=== PATIENT | male | born 1955 | race Caucasian/White ===

== ENCOUNTER 2018-11-27 13:20 | Inpatient (IN) | payer MEDICAID ==
--- NOTE | 2018-11-27 13:48 | EDPHY ---
HPI/HX/ROS/PE/MDM - Data Points Imaging: I viewed and interpreted images myself Narrative: CHIEF COMPLAINT: "Sick. Bowel problems. Urine problems. I can't feel my feet." HPI: The patient is a 63 y/o male arriving with his daughter for evaluation of multiple issues including urinary and bowel incontinence, bilateral foot pain, weight loss, and difficulty walking for the last few months. He says, "my feet feel like ice, sometimes like they're on fire." He also describes difficulty walking around at home and says, "my equilibrium is all shot." His daughter went to visit him for the first time in a while today and found him incontinent , off-balance, and with notable weight loss. She is concerned he is not able to care for himself at home. The patient reports his last doctor visit was at least 2 years ago. He denies back pain, vomiting, fever, unilateral weakness or numbness, genital paresthesias. REVIEW OF SYSTEMS: A comprehensive 10 system review of systems is otherwise negative aside from elements mentioned in the history of present illness. PMH: Hearing loss, asthma, cervical fracture, left shoulder surgery, history of alcohol abuse. SOCIAL HISTORY: Daughter at bedside. Daily smoker. Prior medical records reviewed including admission 07/30/15 for facial abscess. PHYSICAL EXAM: General:Patient is alert, elderly, frail, cyndie skin, in no acute distress. ENT:Eyes are normal to inspection. ENT inspection normal. Neck: Normal inspection. Full range of motion. Respiratory:No respiratory distress. Breath sounds normal bilaterally. Cardiovascular: Regular rate and rhythm. Strong peripheral pulses. Normal cap refill. Abdomen:The abdomen is nontender to palpation. There are no peritoneal signs. Back: Normal to inspection. No tenderness to palpation. Skin: Normal color. No rash. Warm and dry. Extremities: Normal appearance. Full range of motion. Neuro: Oriented x3. Normal motor function. Normal sensory function. Normal dorsiflexion and plantarflexion. (Cole Poole) ED Course: This is an ill-appearing 63 y/o male who presents with a few-month history of bowel and bladder incontinence, difficulty walking, and general decompensation at home. His daughter visited him today and found him incontinent with notable weight loss and brought him to the ED for evaluation. He has a nonfocal neuro exam. Differential is wide. Plan for IV, labs, UA, EKG, chest x-ray, lumbar x- ray. The 12 lead EKG was interpreted by myself. See hard copy and/or "tracemaster" electronic copy for interpretation. Lipase elevated. Reevaluated patient and discussed findings. Recommended admission for further assessment and stabilization, but he is reluctant. Would like to know if there' s anything wrong to determine if he can go home instead. Agreed to abdominal CT. 1500: Patient care signed out to Dr. Freeman at shift change pending imaging and lab results. Likely admission. (Cole Poole) I took over care of this patient at 3:00 p.m.. This patient is here for inability to care for himself and there is concern about malignancy. We are waiting on the results of CT abdomen and pelvis to screen for this. Dr. Poole has discussed admission with this patient. At this time the patient is refusing admission. CT abdomen and pelvis with IV contrast. No significant spinal canal stenosis. Fat containing adrenal adenoma. Diverticulitis without diverticulosis. This is otherwise an unremarkable study. Results were discussed with staff radiologist Dr. Long Leo. 4:00 p.m., the patient was re-evaluated. His daughter is in the room with him. I discussed the results of his CT scan abdomen and pelvis with both him and his daughter. I discussed admission again. The patient is now in agreement to be admitted. This is a failure to thrive and inability to care for himself situation. This was discussed with the daughter. She is in agreement. Hospitalist chano. Spoke with hospitalist, Dr. Beth, case discussed in detail with her. She accepts this patient for admission. The patient's remaining emergency department course under my care has been uneventful. The patient was admitted in stable condition. (Maribell Freeman) - Data Points Imaging Results: Imaging Impressions Chest X-Ray 11/27/18 13:48 Impression: 1. No active cardiopulmonary disease seen. 2. Hyperexpanded lungs possibly from underlying COPD. 3. Old bilateral healed rib fractures and compression fracture suspected at T3, T6, and T10. If indicated, consider DEXA scan at some point to evaluate underlying bone mineral density. Lumbar Spine X-Ray 11/27/18 13:48 Impression: Findings suggest multiple lumbar and thoracic compression deformities, acuity unknown, without focal lesions. Abdomen CT 11/27/18 14:56 Impression: 1. Diverticulosis without definite diverticulitis. 2. Left adrenal adenoma, which is probably benign. No prior studies are available for comparison. A follow-up study could be obtained or further evaluation could be obtained to document benign etiology. 3. See above report for additional findings. Results called and discussed with Cole Poole MD on November 27, 2018 at 1554 hours. Laboratory Results: Laboratory Results 11/27/18 14:21 11/27/18 14:21 11/27/18 11/27/18 11/27/18 14:21 14:21 14:21 WBC RBC Hgb Hct MCV MCH MCHC RDW Plt Count MPV Neut % (Auto) Lymph % (Auto) [place] % (Auto) Eos % (Auto) Baso % (Auto) Nucleat RBC Rel Count Absolute Neuts (auto) Absolute Lymphs (auto) Absolute Monos (auto) Absolute Eos (auto) Absolute Basos (auto) Absolute Nucleated RBC Immature Gran % Immature Gran # PT 13.4 SEC SEC (12.0-15.0) INR 1.00 (0.83-1.16) APTT 28.4 SEC SEC (23.0-38.0) Sodium 139 mEq/L mEq/L (135-145) Potassium 3.6 mEq/L mEq/L (3.5-5.2) Chloride 107 mEq/L mEq/L (97-110) Carbon Dioxide 22 mEq/l mEq/l (22-31) Anion Gap 10 mEq/L mEq/L (6-14) BUN 6 mg/dL L mg/dL (7-23) Creatinine 0.6 mg/dL L mg/dL (0.7-1.3) Estimated GFR > 60 Glucose 95 mg/dL mg/dL (70-100) Calcium 9.0 mg/dL mg/dL (8.5-10.4) Total Bilirubin 1.1 mg/dL mg/dL (0.1-1.4) Conjugated Bilirubin 0.8 mg/dL H mg/dL (0.0-0.5) Unconjugated Bilirubin 0.3 mg/dL mg/dL (0.0-1.1) AST 126 IU/L H IU/L (17-59) ALT 31 IU/L IU/L (21-72) Alkaline Phosphatase 105 IU/L IU/L (38-126) POC Troponin I 0.02 ng/mL ng/mL (0.00-0.08) Total Protein 7.0 g/dL g/dL (6.3-8.2) Albumin 4.1 g/dL g/dL (3.5-5.0) Lipase 365 IU/L H IU/L (23-300) 11/27/18 14:21 WBC 5.86 10^3/uL 10^3/uL (3.80-9.50) RBC 4.06 10^6/uL L 10^6/uL (4.40-6.38) Hgb 14.2 g/dL g/dL (13.7-17.5) Hct 40.9 % % (40.0-51.0) MCV 100.7 fL H fL (81.5-99.8) MCH 35.0 pg H pg (27.9-34.1) MCHC 34.7 g/dL g/dL (32.4-36.7) RDW 15.3 % H % (11.5-15.2) Plt Count 132 10^3/uL L 10^3/uL (150-400) MPV 10.3 fL fL (8.7-11.7) Neut % (Auto) 61.0 % % (39.3-74.2) Lymph % (Auto) 26.1 % % (15.0-45.0) [place]comb % (Auto) 10.2 % % (4.5-13.0) Eos % (Auto) 0.9 % % (0.6-7.6) Baso % (Auto) 1.5 % % (0.3-1.7) Nucleat RBC Rel Count 0.0 % % (0.0-0.2) Absolute Neuts (auto) 3.57 10^3/uL 10^3/uL (1.70-6.50) Absolute Lymphs (auto) 1.53 10^3/uL 10^3/uL (1.00-3.00) Absolute Monos (auto) 0.60 10^3/uL 10^3/uL (0.30-0.80) Absolute Eos (auto) 0.05 10^3/uL 10^3/uL (0.03-0.40) Absolute Basos (auto) 0.09 10^3/uL 10^3/uL (0.02-0.10) Absolute Nucleated RBC 0.00 10^3/uL 10^3/uL (0-0.01) Immature Gran % 0.3 % % (0.0-1.1) Immature Gran # 0.02 10^3/uL 10^3/uL (0.00-0.10) PT INR APTT Sodium Potassium Chloride Carbon Dioxide Anion Gap BUN Creatinine Estimated GFR Glucose Calcium Total Bilirubin Conjugated Bilirubin Unconjugated Bilirubin AST ALT Alkaline Phosphatase POC Troponin I Total Protein Albumin Lipase Point of Care Test Results: Chemistry 11/27/18 14:21 POC Troponin I 0.02 ng/mL ng/mL (0.00-0.08) General Time Seen by Provider: 11/27/18 13:42 Initial Vital Signs: Initial Vital Signs Temperature (C) 36.3 C 11/27/18 13:33 Heart Rate 89 11/27/18 13:33 Respiratory Rate 18 11/27/18 13:33 Blood Pressure 133/106 H 11/27/18 13:33 O2 Sat (%) 96 11/27/18 13:33 O2 Delivery Mode Room Air Allergies/Adverse Reactions: No Known Allergies Allergy (Unverified 11/27/18 13:37) Home Medications: Medication Instructions Recorded traZODONE 10/19/13 Diazepam [Valium 10 MG (RX)] 10 mg PO TID PRN #20 tab 05/22/15 Hydrocodone/APAP 5/325 [[place] 1 - 2 each PO Q6 PRN #20 tab 05/22/15 5/325] oxyCODONE/APAP 5/325 [Percocet 1 - 2 tab PO Q6-8PRN PRN #20 tab 05/22/15 5/325 (RX)] Cephalexin [Keflex] 500 mg PO QID #28 cap 07/30/15 Sulfamethox/Tmp 800/160 mg 1 tab PO BID #14 tab 07/30/15 [Bactrim Ds] Departure - Departure Disposition: [facility] Inpatient Acute Clinical Impression: Clinical decompensation, Weight loss, Numbness in feet Incontinence Qualifiers: Incontinence type: fecal Fecal incontinence type: unspecified Qualified Code(s) : R15.9 - Full incontinence of feces Referrals: NONE *PRIMARY CARE P,. [Primary Care Provider] - As per Instructions Report Scribed for: Cole Poole Report Scribed by: Gill Landers Date of Report: 11/27/18 Time of Report: 13:48 Physician Review and Approval Statement: Portions of this note were transcribed by an ED scribe. I personally performed the history, physical exam, and medical decision making; and confirm the accuracy of the information in the transcribed note.
--- NOTE | 2018-11-27 14:12 | CPEKG ---
Test Reason : OPEN Blood Pressure : / mmHG Vent. Rate : 082 BPM Atrial Rate : 083 BPM P-R Int : 121 ms QRS Dur : 110 ms QT Int : 401 ms P-R-T Axes : 093 -49 072 degrees QTc Int : 469 ms Sinus rhythm Incomplete RBBB and LAFB Low voltage, extremity and precordial leads Confirmed by Cole Poole ([id number]) on 11/27/2018 2:12:02 PM Referred By: Cole Poole Confirmed By:Cole Poole
[2018-11-27 14:30] LABS: PLATELET COUNT 132 10^3/uL (150-400)
[2018-11-27 14:51] LABS: PROTIME(PATIENT) 13.4 SEC (12.0-15.0)
[2018-11-27] MEDS ORDERED: IOHEXOL 350mgI/ML (OMNIPAQUE) 150 ML BTL IV ONE (15:01)
[2018-11-27] MEDS ORDERED: CYCLOBENZAPRINE 10 MG TAB PO ONE (16:00)
[2018-11-27] MEDS ORDERED: HYDROmorphONE/DILAUDID 1 MG/ML INJ IVP PRN (17:05)
[2018-11-27] MEDS ORDERED: ALBUTEROL 3 ML DEYVIAL IH PRN (17:05)
[2018-11-27] MEDS ORDERED: NICOTINE 21 MG/24 HR PATCH TD PRN (17:05)
[2018-11-27] MEDS ORDERED: ONDANSETRON 4 MG/2 ML VIAL IVP PRN (17:05)
[2018-11-27] MEDS ORDERED: ACETAMINOPHEN 325 MG TAB PO PRN ×2 (17:05)
[2018-11-27] MEDS ORDERED: ONDANSETRON DISINTEGRATING 4 MG TAB PO PRN (17:05)
[2018-11-27] MEDS ORDERED: PROMETHAZINE HCL 25 MG/ML INJ IVP PRN (17:05)
[2018-11-27] MEDS ORDERED: FLUMAZENIL 0.5 MG/5 ML MDV IVP PRN (17:05)
[2018-11-27] MEDS ORDERED: MAG HYDROX/AL HYDROX/SIMETH 30 ML UDCUP PO PRN (17:05)
--- NOTE | 2018-11-27 17:13 | PDGENHP ---
History and Physical - Chief Complaint bowel/bladder/leg and feet problems - History of Present Illness 63 yo M with PMH of etoh abuse and limited evaluations by doctors (last seen by an MD at [facility] at least 2 years ago) presenting from home with complaints of bowel and bladder incontinence and burning pain in his bilateral feet and lower legs that has been progressive over the last several months. Patient notes that these symptoms have gotten so bad that he is now essentially unable to walk or eat. He lives alone and states that he drinks about 1 pint of alcohol a day , and that this is the only way he can manage his pain. He describes spasms in his legs and what feels like alternating ice cold or burning in his feet bilaterally that has been worsening over the last several months. He also has pain in his abdomen, and states that everything he eats goes right through him with frequent loose stools that come on so quickly he is unable to make it to the bathroom. He also notes that he has been having progressive issues with his memory and states he has very limited short term memory. He has not had any changes in his vision, he does not have any localized weakness or numbness. He states he has fevers and chills alternating daily. He espouses a 30-50 pound weight loss over what he thinks is several months to a half a year. He has not sought care for any of these issues up until now. He is accompanied by his daughter who does not live with him but is very concerned that he is no longer able to care for himself. History Information - Allergies/Home Medication List Allergies/Adverse Reactions: No Known Allergies Allergy (Unverified 11/27/18 13:37) Home Medications: Acetamn/Diphenhydramine 500/25 [Tylenol PM (*)] 1 each PO HS 11/27/18 [Last Taken 11/26/18] I have personally reviewed and updated: family history, medical history, social history, surgical history - Past Medical History asthma Additional medical history: alcohol abuse. 'broken neck' - Surgical History Reports: no pertinent surgical hx - Family History Positive for: non-pertinent - Social History Smoking Status: Current every day smoker Alcohol Use: Heavy Drug Use: None Additional social history: lives alone, has a daughter in town that accompanies him here today Review of Systems Review of Systems: ROS: 10pt was reviewed & negative except for what was stated in HPI & below Physical Exam Physical Exam: Temp Pulse Resp BP Pulse Ox 36.3 C 84 18 137/92 H 95 11/27/18 13:33 11/27/18 17:09 11/27/18 17:09 11/27/18 17:09 11/27/18 17:09 Constitutional: chronically ill appearing, uncomfortable Eyes: PERRL, anicteric sclera Ears, Nose, Mouth, Throat: poor dentition, dry mucous membranes Cardiovascular: regular rate and rhythym, no murmur, rub, or gallop, No edema Respiratory: no respiratory distress, reduced air movement, expiratory wheeze Gastrointestinal: normoactive bowel sounds, tenderness (patient with significant tenderness even to light touch on his abdomen and everywhere), No guarding, No rebound Genitourinary: no bladder fullness Skin: warm, normal color Musculoskeletal: muscular tenderness (tender to palpation to light touch everywhere), generalized weakness, No asymmetric calves Neurologic: AAOx3, CN II-XII Intact Psychiatric: anxious, depressed, poor memory Lab Data & Imaging Review 11/27/18 14:21 11/27/18 14:21 WBC 5.86 10^3/uL (3.80-9.50) 11/27/18 14:21 RBC 4.06 10^6/uL (4.40-6.38) L 11/27/18 14:21 Hgb 14.2 g/dL (13.7-17.5) 11/27/18 14:21 Hct 40.9 % (40.0-51.0) 11/27/18 14:21 MCV 100.7 fL (81.5-99.8) H 11/27/18 14:21 MCH 35.0 pg (27.9-34.1) H 11/27/18 14:21 MCHC 34.7 g/dL (32.4-36.7) 11/27/18 14:21 RDW 15.3 % (11.5-15.2) H 11/27/18 14:21 Plt Count 132 10^3/uL (150-400) L 11/27/18 14:21 MPV 10.3 fL (8.7-11.7) 11/27/18 14:21 Neut % (Auto) 61.0 % (39.3-74.2) 11/27/18 14:21 Lymph % (Auto) 26.1 % (15.0-45.0) 11/27/18 14:21 [place] % (Auto) 10.2 % (4.5-13.0) 11/27/18 14:21 Eos % (Auto) 0.9 % (0.6-7.6) 11/27/18 14:21 Baso % (Auto) 1.5 % (0.3-1.7) 11/27/18 14:21 Nucleat RBC Rel Count 0.0 % (0.0-0.2) 11/27/18 14:21 Absolute Neuts (auto) 3.57 10^3/uL (1.70-6.50) 11/27/18 14:21 Absolute Lymphs (auto) 1.53 10^3/uL (1.00-3.00) 11/27/18 14:21 Absolute Monos (auto) 0.60 10^3/uL (0.30-0.80) 11/27/18 14:21 Absolute Eos (auto) 0.05 10^3/uL (0.03-0.40) 11/27/18 14:21 Absolute Basos (auto) 0.09 10^3/uL (0.02-0.10) 11/27/18 14:21 Absolute Nucleated RBC 0.00 10^3/uL (0-0.01) 11/27/18 14:21 Immature Gran % 0.3 % (0.0-1.1) 11/27/18 14:21 Immature Gran # 0.02 10^3/uL (0.00-0.10) 11/27/18 14:21 PT 13.4 SEC (12.0-15.0) 11/27/18 14:21 INR 1.00 (0.83-1.16) 11/27/18 14:21 APTT 28.4 SEC (23.0-38.0) 11/27/18 14:21 Sodium 139 mEq/L (135-145) 11/27/18 14:21 Potassium 3.6 mEq/L (3.5-5.2) 11/27/18 14:21 Chloride 107 mEq/L (97-110) 11/27/18 14:21 Carbon Dioxide 22 mEq/l (22-31) 11/27/18 14:21 Anion Gap 10 mEq/L (6-14) 11/27/18 14:21 BUN 6 mg/dL (7-23) L 11/27/18 14:21 Creatinine 0.6 mg/dL (0.7-1.3) L 11/27/18 14:21 Estimated GFR > 60 11/27/18 14:21 Glucose 95 mg/dL (70-100) 11/27/18 14:21 Calcium 9.0 mg/dL (8.5-10.4) 11/27/18 14:21 Total Bilirubin 1.1 mg/dL (0.1-1.4) 11/27/18 14:21 Conjugated Bilirubin 0.8 mg/dL (0.0-0.5) H 11/27/18 14:21 Unconjugated Bilirubin 0.3 mg/dL (0.0-1.1) 11/27/18 14:21 AST 126 IU/L (17-59) H 11/27/18 14:21 ALT 31 IU/L (21-72) 11/27/18 14:21 Alkaline Phosphatase 105 IU/L (38-126) 11/27/18 14:21 POC Troponin I 0.02 ng/mL (0.00-0.08) 11/27/18 14:21 Total Protein 7.0 g/dL (6.3-8.2) 11/27/18 14:21 Albumin 4.1 g/dL (3.5-5.0) 11/27/18 14:21 Lipase 365 IU/L (23-300) H 11/27/18 14:21 Visualized and Interpreted Chest x-ray results: Yes Chest X-Ray results: other (c/w COPD, old rib and compression fractures) Visualized and Interpreted imaging results: Yes Interpretation: abd CT: diverticulosis, benign appearing adrenal adenoma. lumbar xray: multiple thoracic and lumbar compression fractures of unknown acuity Visualized and Interpreted EKG results: Yes EKG Interpretation: Positive for: normal sinsus rhythm EKG additional interpertation: incomplete rbbb, lafb. low voltage Assessment & Plan Assessment: Clinical decompensation (Acute) Incontinence (Acute) Numbness in feet (Acute) Weight loss (Acute) 63 yo M presenting with multiple complaints including burning pain BLE, incontinence, weakness, poor po intake and gait instability in the setting of heavy alcohol abuse and poor nutrition # generalized weakness/gait instability: has been a subacute decline over several months at least, patient without focal findings on exam but does have generalized weakness and gait instability. Given longstanding alcoholism and poor po intake concern for Wernicke's encephalopathy--started on high dose thiamine, MVI, folate. Will get pt/ot involved. Does have e/o multiple thoracic and lumbar compression fractures as below with f/u ct t/l spine ordered # etoh use disorder, severe: patient states that he is willing to quit drinking and knows that he has to, will start CIWA, high dose thiamine as above; does not have e/o withdrawal at this time but last drink was earlier in the day and patient states he is sure he will have severe withdrawal as he never goes without drinking--will monitor closely # bowel/bladder incontinence: sounds like the issue is mainly to do with patient being unable to ambulate as above but also having loose stools likely due to heavy etoh abuse, abd ct unremarkable, will check serial PVR and place luna if e/o retention, if true diarrhea will get GI pathogen panel # neuropathic pain: patient complaining of burning/freezing pain in bilateral lower extremities, 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 but will check tsh, a1c , b12 and started on high dose thiamine as above, started on gabapentin for this and etoh withdrawal sxs # multiple compression fractures: patient is complaining of increased weakness but not of pain, given weakness and so forth will get f/u T/L spine CT for now, pt/ot as above # abdominal pain: unclear etiology--seems more neuropathic as well given pain out of proportion to exam and severe pain with even very light touch, abd CT reassuring, will monitor # malnutrition: patient reports up to 50 pound weight loss over several months, appears cachectic, will get dietary consult and provide ensure/smoothies # copd/asthma: with wheeze noted on exam but not hypoxic, does not use inhalers chronically, will start duonebs/albuterol for now # FTT: in the setting of above, will likely need placement after discharge, TBD # IP status, will need > 48 hours stay for eval/mgmt of above Patient new to my care. Old records reviewed and summarized as above. Care plan reviewed with ER doctor as above, further hx obtained from patients daughter present at bedside.
[2018-11-27] MEDS: oxyCODONE IR 5 MG TAB PO PRN ×2 (17:35→18:38)
[2018-11-27] MEDS: LORazepam 2 MG/ML INJ IVP PRN (19:40)
[2018-11-27] MEDS: THIAMINE HCL 500 MG in NS 100 ML IV SCH (21:35)
[2018-11-27] MEDS: FAMOTIDINE 20 MG TAB PO SCH (21:35)
[2018-11-27] MEDS: GABAPENTIN 300 MG CAP PO SCH (21:35)
[2018-11-27] MEDS: IPRATROPIUM/ALBUTEROL 3 ML DEYVIAL IH SCH (21:49)
[2018-11-28] MEDS ORDERED: LORazepam 2 MG/ML INJ IVP ONE (00:11)
[2018-11-28] MEDS: NS 1,000 ML IV SCH ×2 (05:08→16:03)
[2018-11-28] MEDS: THIAMINE HCL 500 MG in NS 100 ML IV SCH ×3 (05:08→21:46)
[2018-11-28 05:29] LABS: PLATELET COUNT 104 10^3/uL (150-400)
[2018-11-28] MEDS: IPRATROPIUM/ALBUTEROL 3 ML DEYVIAL IH SCH ×4 (06:23→21:15)
[2018-11-28] MEDS: GABAPENTIN 300 MG CAP PO SCH ×3 (09:27→20:16)
[2018-11-28] MEDS: FAMOTIDINE 20 MG TAB PO SCH ×2 (09:27→20:16)
[2018-11-28] MEDS: ENOXAPARIN 40 MG/0.4 ML SYR SC SCH (09:28)
[2018-11-28] MEDS: MULTIVITAMINS 1 EACH TAB PO SCH (09:28)
[2018-11-28] MEDS: FOLIC ACID 1 MG TAB PO SCH (09:28)
[2018-11-28] MEDS: oxyCODONE IR 5 MG TAB PO PRN ×2 (09:35→18:41)
[2018-11-28] MEDS ORDERED: PNEUMOCOCCAL 0.5ML VACCINE VIAL (PNEUMOVAX 23) IM ONE (10:38)
--- NOTE | 2018-11-28 11:39 | ASMTCMCOM ---
CM Note CM Note Notes: Pts case discussed w/ Tova Martinez NP. Pt is a 63 y/o man admitted for failure to thrive and weight loss. Pt has a hx of etoh abuse. Pt previously at [facility] and was sober for 15 months afterwards. CM to complete CAGE and provide education tomorrow. Pt is in w/d today. CM to follow. Plan: TBD Date Signed: 11/28/2018 11:38 AM Electronically Signed By:PARRIS Lerner
--- NOTE | 2018-11-28 11:49 | HOSPPROG ---
Hospitalist Progress Note Assessment/Plan: 63 yo M presenting with multiple complaints including burning pain BLE, incontinence, weakness, poor po intake and gait instability in the setting of heavy alcohol abuse and poor nutrition. First encounter, chart reviewed. D/W RN and CM. # generalized weakness/gait instability -has been a subacute decline over several months -PT/OT -concern for Wernicke's encephalopathy -high dose thiamine, MVI, folate. # etoh use disorder, severe: -patient not currently sure he wants to stop drinking. 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 -tsh, b12 normal -started on gabapentin for this # multiple compression fractures: -patient is complaining of increased weakness but not of pain -f/u T/L spine CT shows old fx -no intervention at this time # abdominal pain: -none currently -eting -unclear etiology -abd CT reassuring -will monitor # malnutrition: -patient reports up to 50 pound weight loss over several months -appears cachectic -will get dietary consult -provide ensure/smoothies -eating well # copd/asthma: -stable -not hypoxic -does not use inhalers chronically -duonebs/albuterol for now # FTT: -in the setting of above -will likely need placement after discharge, TBD -lives alone -cont evaluation #Dispo -unclear -IP status, will need > 48 hours stay for eval/mgmt of above -SNF likely Subjective: Up in bed. Feeling terrible. Not sure about quitting drinking. Objective: Vital Signs Temp Pulse Resp BP Pulse Ox 36.8 C 84 16 133/94 H 98 11/28/18 08:00 11/28/18 08:00 11/28/18 08:00 11/28/18 08:00 11/28/18 08:00 Laboratory Results 11/28/18 04:45 11/28/18 04:45 11/27/18 11/28/18 11/29/18 05:59 05:59 05:59 Intake Total 2592 Output Total 300 Balance 2592 -300 PT 13.4 SEC (12.0-15.0) 11/27/18 14:21 INR 1.00 (0.83-1.16) 11/27/18 14:21 - Physical Exam Constitutional: chronically ill appearing, uncomfortable, unkempt, cachectic Eyes: PERRL, anicteric sclera, EOMI Ears, Nose, Mouth, Throat: moist mucous membranes, hearing normal, ears appear normal Cardiovascular: tachycardia, edema, No JVD Respiratory: no respiratory distress, no rales or rhonchi, reduced air movement Gastrointestinal: normoactive bowel sounds, tenderness, No ascites Skin: warm, normal color, No mottled Musculoskeletal: no joint effusions, pain with ROM, generalized weakness Neurologic: AAOx3 Psychiatric: not anxious, not encephalopathic, thought process linear, poor insight, poor judgement ICD10 Worksheet Patient Problems: Problems Problem Status Onset Clinical decompensation Acute Incontinence Acute Weight loss Acute Numbness in feet Acute
--- NOTE | 2018-11-28 11:53 | PDMN ---
Medical Necessity Medical necessity: [facility] [place] Sub[place] Related d/o, 2 days: 63 yo w/ long hx etoh abuse presents w/ bowel/bladder incontinence, pain BLE, inability to walk, abd pain, diarrhea and 50 lb weight loss per pt over recent months. Workup reveals acute clinical decompensation with weight loss, incontinence, neuropathy , poss r/t severe etoh d/o. Concern for Wernicke's. CIWA protocol initiated, IVF and thiamine started. IP status as pt will need >48hrs for eval/mgmt. of the above. Meets [facility] [place] criteria for SRD w/ acute toxicity or instability from substance use w/ severe dysfunction in daily living for adult.
[2018-11-28] MEDS ORDERED: PROTOCOL MAGNESIUM 1 DOSE IV PRN (11:55)
[2018-11-28] MEDS ORDERED: PROTOCOL CALCIUM 1 DOSE IV PRN (12:36)
[2018-11-28] MEDS ORDERED: PROTOCOL K PHOSPHATE 1 DOSE IV PRN (12:36)
[2018-11-28] MEDS ORDERED: PROTOCOL POTASSIUM 1 DOSE MISC PRN (12:36)
[2018-11-28] MEDS ORDERED: POTASSIUM CL 10 MEQ TAB PO ONE ×2 (12:51→20:01)
[2018-11-28] MEDS ORDERED: MAGNESIUM SULF 2 GM/WATER 50 ML IV ONE (12:55)
[2018-11-28] MEDS ORDERED: CALCIUM GLUCONATE 50 ML IV ONE (14:32)
[2018-11-28] MEDS ORDERED: CALCIUM GLUCONATE 1 GM in D5W 50 ML IV ONE (15:00)
[2018-11-28] MEDS ORDERED: LACTULOSE 20 GM/30 ML UDCUP PO PRN (15:23)
[2018-11-28] MEDS ORDERED: POLYETHYLENE GLYCOL 3350 17 GM PKT PO PRN (15:23)
[2018-11-28] MEDS ORDERED: BISACODYL 10 MG SUPP PR PRN (15:23)
[2018-11-28] MEDS ORDERED: MAGNESIUM HYDROXIDE 30 ML UDCUP PO PRN (15:23)
[2018-11-28] MEDS: SENNOSIDES/DOCUSATE SODIUM TAB PO SCH ×2 (15:54→20:16)
[2018-11-28] MEDS: LORazepam 2 MG/ML INJ IVP PRN (21:47)
[2018-11-29] MEDS: THIAMINE HCL 500 MG in NS 100 ML IV SCH ×3 (05:21→21:40)
[2018-11-29] MEDS: IPRATROPIUM/ALBUTEROL 3 ML DEYVIAL IH SCH ×4 (05:46→20:33)
[2018-11-29] MEDS: LORazepam 2 MG/ML INJ IVP PRN (06:02)
[2018-11-29] MEDS: NS 1,000 ML IV SCH ×2 (06:03→14:37)
[2018-11-29] MEDS ORDERED: MAGNESIUM SULF 2 GM/WATER 50 ML IV ONE (07:46)
[2018-11-29] MEDS ORDERED: CALCIUM GLUCONATE 50 ML IV ONE (07:47)
[2018-11-29] MEDS ORDERED: CALCIUM GLUCONATE 1 GM in D5W 50 ML IV ONE (08:00)
[2018-11-29] MEDS: SENNOSIDES/DOCUSATE SODIUM TAB PO SCH ×3 (09:01→21:40)
[2018-11-29] MEDS: GABAPENTIN 300 MG CAP PO SCH ×3 (09:01→21:40)
[2018-11-29] MEDS: MULTIVITAMINS 1 EACH TAB PO SCH (09:01)
[2018-11-29] MEDS: FAMOTIDINE 20 MG TAB PO SCH ×2 (09:01→21:40)
[2018-11-29] MEDS: FOLIC ACID 1 MG TAB PO SCH (09:01)
[2018-11-29] MEDS: ENOXAPARIN 40 MG/0.4 ML SYR SC SCH (09:02)
[2018-11-29] MEDS: oxyCODONE IR 5 MG TAB PO PRN (10:31)
--- NOTE | 2018-11-29 14:13 | ASMTCAGE ---
CAGE Do you feel you ought to Answers: Yes cut down on your drinking or drug use? Do people annoy you by Answers: No criticizing your drinking or drug use? Do you feel guilty about Answers: No your drinking or drug use? Do you drink or use drugs Answers: Yes first thing in the morning ([employer])? Date Signed: 11/29/2018 02:12 PM Electronically Signed By:PARRIS Lerner
--- NOTE | 2018-11-29 14:13 | ASMTCMCOM ---
CM Note CM Note Notes: Pts case discussed w/ Elsa Bashir NP. PT is recommending SNF. CM met w/ pt and completed CAGE. Pt agreeable to 30 days at SNF. CM started ultc-100. [facility] has 2 business days to come evaluate pt. CM sent numerous referrals out to SNF facilities that accept Medicaid. Pt was unable to say if he wanted to stop his etoh. Referral made to [facility]. CM to follow. Plan: SNF Date Signed: 11/29/2018 02:12 PM Electronically Signed By:PARRIS Lerner
--- NOTE | 2018-11-29 15:41 | HOSPPROG ---
Hospitalist Progress Note Assessment/Plan: 63 yo M presenting with multiple complaints including burning pain BLE, incontinence, weakness, poor po intake and gait instability in the setting of heavy alcohol abuse and poor nutrition. First encounter, chart reviewed. # generalized weakness/gait instability -has been declining for several months -concern for Wernicke's -high dose thiamine # etoh use disorder, severe -patient not currently sure he wants to stop drinking. 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 Doubtful Jenaro will quit drinking, his daughter has not been seeing him lately. Encouraged her to gain MPOA once he can be clear enough to say this is ok. DC fluids. Will check an ammonia level Subjective: Bill c/o lower ext pain. Objective: Vital Signs Temp Pulse Resp BP Pulse Ox 37.1 C 97 12 131/94 H 91 L 11/29/18 15:24 11/29/18 15:24 11/29/18 15:24 11/29/18 15:24 11/29/18 15:24 Microbiology 11/28/18 17:50 Gastrointestinal Tract Panel (PCR) - Final Stool Laboratory Results 11/28/18 04:45 11/29/18 05:56 11/28/18 11/29/18 11/30/18 05:59 05:59 05:59 Intake Total 2592 1800 Output Total 1050 175 Balance 2592 750 -175 PT 13.4 SEC (12.0-15.0) 11/27/18 14:21 INR 1.00 (0.83-1.16) 11/27/18 14:21 - Physical Exam Constitutional: chronically ill appearing, uncomfortable Eyes: PERRL Ears, Nose, Mouth, Throat: hard of hearing Cardiovascular: regular rate and rhythym, tachycardia Respiratory: no respiratory distress, reduced air movement, expiratory wheeze Gastrointestinal: normoactive bowel sounds Skin: warm, other (face flushed and reddened) Musculoskeletal: other (leans back w standing) Neurologic: other (oriented to himself and that he is in the hospital) Psychiatric: poor insight, poor judgement, poor memory ICD10 Worksheet Patient Problems: Problems Problem Status Onset Clinical decompensation Acute Incontinence Acute Numbness in feet Acute Weight loss Acute
[2018-11-30] MEDS: THIAMINE HCL 500 MG in NS 100 ML IV SCH ×3 (05:01→21:00)
[2018-11-30] MEDS: IPRATROPIUM/ALBUTEROL 3 ML DEYVIAL IH SCH ×4 (06:06→21:39)
[2018-11-30] MEDS ORDERED: CALCIUM GLUCONATE 1 GM in D5W 50 ML IV ONE (08:00)
[2018-11-30] MEDS: FOLIC ACID 1 MG TAB PO SCH (08:25)
[2018-11-30] MEDS: GABAPENTIN 300 MG CAP PO SCH ×3 (08:25→21:00)
[2018-11-30] MEDS: MULTIVITAMINS 1 EACH TAB PO SCH (08:25)
[2018-11-30] MEDS: FAMOTIDINE 20 MG TAB PO SCH ×2 (08:25→21:00)
[2018-11-30] MEDS: ENOXAPARIN 40 MG/0.4 ML SYR SC SCH (08:26)
[2018-11-30] MEDS: NICOTINE 21 MG/24 HR PATCH TD SCH (08:26)
[2018-11-30] MEDS: HYDROCODONE/APAP 5/325 TAB PO PRN (08:27)
[2018-11-30] MEDS: SENNOSIDES/DOCUSATE SODIUM TAB PO SCH ×2 (08:34→22:02)
[2018-11-30] MEDS ORDERED: POTASSIUM CL 10 MEQ TAB PO ONE (09:00)
[2018-11-30] MEDS ORDERED: MAGNESIUM SULF 1 GM/DEXTROSE 100 ML IV ONE (09:00)
[2018-11-30] MEDS ORDERED: CALCIUM GLUCONATE 50 ML IV ONE (09:00)
--- NOTE | 2018-11-30 15:14 | ASMTCMCOM ---
CM Note CM Note Notes: Mag from [facility] here today to davi pt, pasrr triggered. Gildardo from [facility] also here to [place] pt and thinks he can accept pending paperwork from [facility]. DC Plan: SNF Date Signed: 11/30/2018 03:13 PM Electronically Signed By:Natalie Cervantes RN
--- NOTE | 2018-11-30 17:30 | HOSPPROG ---
Hospitalist Progress Note Assessment/Plan: 63 yo M presenting with multiple complaints including burning pain BLE, incontinence, weakness, poor po intake and gait instability in the setting of heavy alcohol abuse and poor nutrition. 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 able to ambulate. Objective: Vital Signs Temp Pulse Resp BP Pulse Ox 36.8 C 87 18 124/83 H 95 11/30/18 12:00 11/30/18 16:41 11/30/18 16:41 11/30/18 12:00 11/30/18 16:41 Microbiology 11/29/18 18:00 Gastrointestinal Tract Panel (PCR) - Final Stool No Organism Detected By Pcr Laboratory Results 11/28/18 04:45 11/30/18 05:00 11/29/18 11/30/18 12/01/18 05:59 05:59 05:59 Intake Total 1800 575 Output Total 1050 625 Balance 750 -50 PT 13.4 SEC (12.0-15.0) 11/27/18 14:21 INR 1.00 (0.83-1.16) 11/27/18 14:21 - Physical Exam Constitutional: not in pain, chronically ill appearing Eyes: PERRL Ears, Nose, Mouth, Throat: hearing normal Cardiovascular: regular rate and rhythym, No tachycardia Respiratory: no respiratory distress Skin: warm Musculoskeletal: generalized weakness Neurologic: AAOx3 Psychiatric: interacting appropriately, not encephalopathic, thought process linear, poor insight ICD10 Worksheet Patient Problems: Problems Problem Status Onset Clinical decompensation Acute Incontinence Acute Numbness in feet Acute Weight loss Acute
[2018-12-01] MEDS: HYDROCODONE/APAP 5/325 TAB PO PRN ×3 (04:27→22:19)
[2018-12-01] MEDS: THIAMINE HCL 500 MG in NS 100 ML IV SCH ×3 (05:13→20:57)
[2018-12-01] MEDS: IPRATROPIUM/ALBUTEROL 3 ML DEYVIAL IH SCH ×4 (05:17→21:32)
[2018-12-01] MEDS ORDERED: CALCIUM GLUCONATE 1 GM in D5W 50 ML IV ONE (08:00)
[2018-12-01] MEDS: SENNOSIDES/DOCUSATE SODIUM TAB PO SCH ×2 (08:08→20:56)
[2018-12-01] MEDS: MULTIVITAMINS 1 EACH TAB PO SCH (08:09)
[2018-12-01] MEDS: GABAPENTIN 300 MG CAP PO SCH ×2 (08:09→16:36)
[2018-12-01] MEDS: NICOTINE 21 MG/24 HR PATCH TD SCH (08:09)
[2018-12-01] MEDS: ENOXAPARIN 40 MG/0.4 ML SYR SC SCH (08:09)
[2018-12-01] MEDS: FAMOTIDINE 20 MG TAB PO SCH ×2 (08:09→20:56)
[2018-12-01] MEDS: FOLIC ACID 1 MG TAB PO SCH (08:09)
[2018-12-01] MEDS ORDERED: MAGNESIUM SULF 1 GM/DEXTROSE 100 ML IV ONE (09:00)
[2018-12-01] MEDS ORDERED: CALCIUM GLUCONATE 50 ML IV ONE (09:00)
[2018-12-01] MEDS ORDERED: IBUPROFEN 200 MG TAB PO PRN (14:00)
--- NOTE | 2018-12-01 17:11 | HOSPPROG ---
Hospitalist Progress Note Assessment/Plan: 63 yo M presenting with multiple complaints including burning pain BLE, incontinence, weakness, poor po intake and gait instability in the setting of heavy alcohol abuse and poor nutrition. 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 -tsh, b12 normal -gabapentin dose increased # multiple compression fractures -patient is complaining of increased weakness but not of pain -f/u T/L spine CT shows old fx -no intervention at this time # abdominal pain -none during my evaluation # malnutrition: -patient reports up to 50 pound weight loss over several months -eating fine # copd/asthma: -duonebs -on room air #nicotine dependence -patch # FTT: -in the setting of above #Dispo: pending, possibly [facility] #plan: get an MRI of his brain, increase gabapentin dosing Subjective: Bill said his legs are burning and causing him significant pain. Objective: Vital Signs Temp Pulse Resp BP Pulse Ox 37.1 C 90 16 127/97 H 93 12/01/18 16:00 12/01/18 16:43 12/01/18 16:43 12/01/18 16:00 12/01/18 16:43 Laboratory Results 11/28/18 04:45 12/01/18 05:31 11/30/18 12/01/18 12/02/18 05:59 05:59 05:59 Intake Total 575 975 Output Total 625 403 250 Balance -50 572 -250 PT 13.4 SEC (12.0-15.0) 11/27/18 14:21 INR 1.00 (0.83-1.16) 11/27/18 14:21 - Physical Exam Constitutional: chronically ill appearing, uncomfortable, No not in pain Eyes: PERRL Ears, Nose, Mouth, Throat: hearing normal Cardiovascular: regular rate and rhythym Respiratory: no respiratory distress, reduced air movement Skin: warm Musculoskeletal: generalized weakness, other (wide gait w walking) Neurologic: AAOx3 Psychiatric: interacting appropriately ICD10 Worksheet Patient Problems: Problems Problem Status Onset Clinical decompensation Acute Incontinence Acute Numbness in feet Acute Weight loss Acute
[2018-12-01] MEDS: GABAPENTIN 400 MG CAP PO SCH (20:57)
[2018-12-02] MEDS: HYDROCODONE/APAP 5/325 TAB PO PRN ×2 (02:25→21:29)
[2018-12-02] MEDS: THIAMINE HCL 500 MG in NS 100 ML IV SCH ×2 (05:03→15:41)
[2018-12-02] MEDS: IPRATROPIUM/ALBUTEROL 3 ML DEYVIAL IH SCH ×4 (06:18→21:14)
[2018-12-02] MEDS: MULTIVITAMINS 1 EACH TAB PO SCH (09:52)
[2018-12-02] MEDS: ENOXAPARIN 40 MG/0.4 ML SYR SC SCH (09:52)
[2018-12-02] MEDS: NICOTINE 21 MG/24 HR PATCH TD SCH (09:52)
[2018-12-02] MEDS: GABAPENTIN 400 MG CAP PO SCH (09:52)
[2018-12-02] MEDS: FAMOTIDINE 20 MG TAB PO SCH ×2 (09:53→21:30)
[2018-12-02] MEDS: FOLIC ACID 1 MG TAB PO SCH (09:53)
[2018-12-02] MEDS: SENNOSIDES/DOCUSATE SODIUM TAB PO SCH ×2 (09:53→21:29)
[2018-12-02] MEDS ORDERED: MAGNESIUM SULF 1 GM/DEXTROSE 100 ML IV ONE (09:56)
[2018-12-02] MEDS ORDERED: GABAPENTIN 100 MG CAP PO ONE (11:30)
--- NOTE | 2018-12-02 12:19 | ASMTCMCOM ---
CM Note CM Note Notes: CM spoke w/Gildardo from [facility], their district business office has declined pt. More referrals sent, [facility] aware. [facility] did come out yesterday and approved pt for 30-60 days stay at rehab. DC Plan: SNF Date Signed: 12/02/2018 12:18 PM Electronically Signed By:Natalie Cervantes RN
[2018-12-02] MEDS ORDERED: MAGNESIUM SULF 1 GM/DEXTROSE 100 ML BAG IV ONE (13:06)
[2018-12-02] MEDS: GABAPENTIN 300 MG CAP PO SCH ×2 (15:42→21:29)
--- NOTE | 2018-12-02 16:07 | HOSPPROG ---
Hospitalist Progress Note Assessment/Plan: 63 yo M presenting with multiple complaints including burning pain BLE, incontinence, weakness, poor po intake and gait instability in the setting of heavy alcohol abuse and poor nutrition. 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 -tsh, b12 normal -gabapentin dose increased (600 mg tid) # multiple compression fractures -patient is complaining of increased weakness but not of pain -f/u T/L spine CT shows old fx -no intervention at this time # abdominal pain -none during my evaluation # malnutrition: -patient reports up to 50 pound weight loss over several months -eating fine # copd/asthma: -duonebs -on room air #nicotine dependence -patch (he says this really is helping) # FTT: -in the setting of above #Dispo: pending #plan: change thiamine to oral, increase gabapentin, asked nursing staff to place condom cath for comfort Subjective: Jenaro said the pain is ongoing in both of his legs. Objective: Vital Signs Temp Pulse Resp BP Pulse Ox 37.0 C 84 14 120/80 91 L 12/02/18 11:14 12/02/18 11:18 12/02/18 11:18 12/02/18 11:14 12/02/18 11:18 Laboratory Results 11/28/18 04:45 12/02/18 05:34 12/01/18 12/02/18 12/03/18 05:59 05:59 05:59 Intake Total 975 1450 240 Output Total 403 900 400 Balance 572 550 -160 PT 13.4 SEC (12.0-15.0) 11/27/18 14:21 INR 1.00 (0.83-1.16) 11/27/18 14:21 - Physical Exam Constitutional: chronically ill appearing, uncomfortable, No not in pain Eyes: PERRL Ears, Nose, Mouth, Throat: hearing normal Cardiovascular: regular rate and rhythym Respiratory: no respiratory distress Skin: warm Musculoskeletal: generalized weakness Neurologic: AAOx3 Psychiatric: interacting appropriately, not anxious, not encephalopathic, thought process linear ICD10 Worksheet Patient Problems: Problems Problem Status Onset Clinical decompensation Acute Incontinence Acute Numbness in feet Acute Weight loss Acute
--- NOTE | 2018-12-02 17:14 | ASMTCMCOM ---
CM Note CM Note Notes: Met with pt to discuss dc to rehab. Informed him that [facility], he stated that was good because he doesn't think he wants to stay that long. Advised pt that we needed a commitment to that time because if he doesn't say he will stay, the facilities wonn't accept him. Pt states he will think about it. CM discussed with pt how he would be able to abstain from drinking. He says he won't and that he just needs to stay busy. I strongly encouraged pt to reconsider commiting to rehab stay. DC Plan: TBD Date Signed: 12/02/2018 05:13 PM Electronically Signed By:Natalie Cervantes RN
[2018-12-03] MEDS: IPRATROPIUM/ALBUTEROL 3 ML DEYVIAL IH SCH ×4 (05:48→23:14)
[2018-12-03] MEDS: ENOXAPARIN 40 MG/0.4 ML SYR SC SCH (10:12)
[2018-12-03] MEDS: NICOTINE 21 MG/24 HR PATCH TD SCH (10:13)
[2018-12-03] MEDS: FOLIC ACID 1 MG TAB PO SCH (10:14)
[2018-12-03] MEDS: GABAPENTIN 300 MG CAP PO SCH ×3 (10:14→23:34)
[2018-12-03] MEDS: MULTIVITAMINS 1 EACH TAB PO SCH (10:14)
[2018-12-03] MEDS: THIAMINE HCL 100 MG TAB PO SCH (10:14)
[2018-12-03] MEDS: FAMOTIDINE 20 MG TAB PO SCH ×2 (10:14→23:37)
[2018-12-03] MEDS: SENNOSIDES/DOCUSATE SODIUM TAB PO SCH ×2 (10:15→23:37)
[2018-12-03] MEDS ORDERED: CALCIUM GLUCONATE 50 ML IV ONE (13:43)
[2018-12-03] MEDS ORDERED: MAGNESIUM SULF 1 GM/DEXTROSE 100 ML IV ONE (13:43)
--- NOTE | 2018-12-03 15:28 | HOSPPROG ---
Hospitalist Progress Note Assessment/Plan: 63 yo M presenting with multiple complaints including burning pain BLE, incontinence, weakness, poor po intake and gait instability in the setting of heavy alcohol abuse and poor nutrition. 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 -tsh, b12 normal -gabapentin dose increased (600 mg tid)- he said he's not sure this is helping # multiple compression fractures -patient is complaining of increased weakness but not of pain -f/u T/L spine CT shows old fx -no intervention at this time # abdominal pain -none during my evaluation # malnutrition: -patient reports up to 50 pound weight loss over several months -eating fine # copd/asthma: -duonebs -on room air #nicotine dependence -patch (he says this really is helping) # FTT: -in the setting of above #Dispo: pending #plan: CM looking at facilities for Jenaro, so far he has been declined. Jenaro said today he knows he needs help, had a hard time walking last night and is very motivated to stay well. He is hopeful to go to SNF. Subjective: Jenaro said his legs hurt, he is very hopeful to go to rehab. Objective: Vital Signs Temp Pulse Resp BP Pulse Ox 36.7 C 102 H 16 103/68 90 L 12/03/18 12:00 12/03/18 12:00 12/03/18 12:00 12/03/18 12:00 12/03/18 12:00 Laboratory Results 11/28/18 04:45 12/03/18 04:29 12/02/18 12/03/18 12/04/18 05:59 05:59 05:59 Intake Total 1450 640 300 Output Total 900 900 475 Balance 550 -260 -175 PT 13.4 SEC (12.0-15.0) 11/27/18 14:21 INR 1.00 (0.83-1.16) 11/27/18 14:21 - Physical Exam Constitutional: chronically ill appearing, uncomfortable Eyes: PERRL Ears, Nose, Mouth, Throat: hearing normal Cardiovascular: regular rate and rhythym Skin: warm Musculoskeletal: generalized weakness Neurologic: AAOx3 Psychiatric: interacting appropriately ICD10 Worksheet Patient Problems: Problems Problem Status Onset Clinical decompensation Acute Incontinence Acute Numbness in feet Acute Weight loss Acute
[2018-12-03] MEDS: HYDROCODONE/APAP 5/325 TAB PO PRN (23:35)
[2018-12-03 23:43] LABS: PLATELET COUNT 172 10^3/uL (150-400)
[2018-12-04] MEDS ORDERED: NS 1,000 ML IV ONE (00:37)
[2018-12-04] MEDS: IPRATROPIUM/ALBUTEROL 3 ML DEYVIAL IH SCH ×4 (03:47→21:42)
[2018-12-04] MEDS: HYDROCODONE/APAP 5/325 TAB PO PRN ×4 (07:32→21:29)
[2018-12-04] MEDS ORDERED: POTASSIUM CL 10 MEQ TAB PO ONE (07:40)
--- NOTE | 2018-12-04 08:33 | HOSPPROG ---
Hospitalist Progress Note Assessment/Plan: 63 yo M presenting with multiple complaints including burning pain BLE, incontinence, weakness, poor po intake and gait instability in the setting of heavy alcohol abuse and poor nutrition. # generalized weakness/gait instability -concern for Wernicke's -high dose thiamine was given -he is much stronger today-can ambulate w PT, needs a walker -reviewed his MRI, nothing acute, atrophy # etoh use disorder, severe -dc CIWA #electrolyte abnormality -place on protocol #fever last night -procalcitonin 0.19 -chest x ray shows no infiltrate per my interpretation -will dc antibiotics, check a respiratory PCR # bowel/bladder incontinence -CT of abdomen stable -condom luna catheter for comfort # neuropathic pain -patient complaining of burning/freezing pain in bilateral lower extremities -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 -tsh, b12 normal -gabapentin dose increased (600 mg tid)- maybe slightly helping # multiple compression fractures -patient is complaining of increased weakness but not of pain -f/u T/L spine CT shows old fx -no intervention at this time # abdominal pain -none during my evaluation # malnutrition: -patient reports up to 50 pound weight loss over several months -eating fine # copd/asthma: -duonebs -on 2 liters #nicotine dependence -patch (he says this really is helping) # FTT: -in the setting of above #Dispo: pending #plan: CM looking at facilities for Jenaro, so far he has been declined Subjective: Jenaro feels fine today, has no complaints, says his breathing is better than it's been in 10 years. Objective: Vital Signs Temp Pulse Resp BP Pulse Ox 37.2 C 84 18 120/79 91 L 12/04/18 03:29 12/04/18 03:48 12/04/18 03:48 12/04/18 03:29 12/04/18 03:48 Laboratory Results 12/03/18 23:30 12/04/18 05:20 12/03/18 12/04/18 12/05/18 05:59 05:59 05:59 Intake Total 640 1200 Output Total 900 1525 550 Balance -260 -325 -550 PT 13.4 SEC (12.0-15.0) 11/27/18 14:21 INR 1.00 (0.83-1.16) 11/27/18 14:21 - Physical Exam Constitutional: appears nourished, chronically ill appearing, uncomfortable Eyes: PERRL Ears, Nose, Mouth, Throat: hearing normal Cardiovascular: regular rate and rhythym Respiratory: no respiratory distress, reduced air movement (bases, poor expiratory effort) Gastrointestinal: normoactive bowel sounds Skin: warm Musculoskeletal: generalized weakness Neurologic: AAOx3 Psychiatric: interacting appropriately, not anxious, not encephalopathic, thought process linear ICD10 Worksheet Patient Problems: Problems Problem Status Onset Clinical decompensation Acute Incontinence Acute Numbness in feet Acute Weight loss Acute
[2018-12-04] MEDS: ENOXAPARIN 40 MG/0.4 ML SYR SC SCH (08:57)
[2018-12-04] MEDS: GABAPENTIN 300 MG CAP PO SCH ×3 (08:57→21:31)
[2018-12-04] MEDS: FOLIC ACID 1 MG TAB PO SCH (08:57)
[2018-12-04] MEDS: MULTIVITAMINS 1 EACH TAB PO SCH (08:57)
[2018-12-04] MEDS: THIAMINE HCL 100 MG TAB PO SCH (08:58)
[2018-12-04] MEDS: FAMOTIDINE 20 MG TAB PO SCH ×2 (08:58→21:29)
[2018-12-04] MEDS: SENNOSIDES/DOCUSATE SODIUM TAB PO SCH ×2 (09:00→21:31)
[2018-12-04] MEDS: NICOTINE 21 MG/24 HR PATCH TD SCH (09:00)
--- NOTE | 2018-12-04 19:42 | ASMTCMCOM ---
CM Note CM Note Notes: Reviewed chart, spoke with Elsa Bashir NP regarding discharge plan of care, pt's progress. Per Elsa, pt claims his birthday is incorrect. Pt reports that he is 64 and will be 65 this year. CM requested pt have family bring in a current ID with his correct date of . If pt is 64 and not 63, he may be eligible for Medicare benefits. Pt reports he has asked his dghtr bring in his ID. OT unable to see pt today. PT continues to recommend SNF Rehab. Per Elsa, CM needs to continue to work on placement. Pt is has cognitive deficits and is not safe to return home. Per prior CM reports, pt has been declined by multiple facilities. CM will follow up on and placement on Wednesday12/05/18. Discharge Plan: SNF Date Signed: 12/04/2018 07:41 PM Electronically Signed By:Sejal Wynne RN
[2018-12-05] MEDS: HYDROCODONE/APAP 5/325 TAB PO PRN ×2 (01:04→20:00)
[2018-12-05] MEDS: LORazepam 2 MG/ML INJ IVP PRN ×3 (01:12→20:14)
[2018-12-05] MEDS: IPRATROPIUM/ALBUTEROL 3 ML DEYVIAL IH SCH ×4 (05:46→21:10)
[2018-12-05] MEDS ORDERED: MAGNESIUM SULF 1 GM/DEXTROSE 100 ML IV ONE (08:27)
[2018-12-05] MEDS: ENOXAPARIN 40 MG/0.4 ML SYR SC SCH (08:39)
[2018-12-05] MEDS: FOLIC ACID 1 MG TAB PO SCH (08:40)
[2018-12-05] MEDS: THIAMINE HCL 100 MG TAB PO SCH (08:40)
[2018-12-05] MEDS: FAMOTIDINE 20 MG TAB PO SCH ×2 (08:40→19:59)
[2018-12-05] MEDS: MULTIVITAMINS 1 EACH TAB PO SCH (08:40)
[2018-12-05] MEDS: NICOTINE 21 MG/24 HR PATCH TD SCH (08:40)
[2018-12-05] MEDS: SENNOSIDES/DOCUSATE SODIUM TAB PO SCH ×2 (08:40→19:58)
[2018-12-05] MEDS: GABAPENTIN 300 MG CAP PO SCH ×3 (08:40→21:29)
--- NOTE | 2018-12-05 15:33 | HOSPPROG ---
Hospitalist Progress Note Assessment/Plan: 63 yo M presenting with multiple complaints including burning pain BLE, incontinence, weakness, poor po intake and gait instability in the setting of heavy alcohol abuse and poor nutrition. # generalized weakness/gait instability -concern for Wernicke's -high dose thiamine was given -he is much stronger today-can ambulate w PT, needs a walker -reviewed his MRI, nothing acute, atrophy # etoh use disorder, severe -dc CIWA #electrolyte abnormality -place on protocol #fever last night -procalcitonin 0.19 -chest x ray shows no infiltrate per my interpretation -will dc antibiotics, check a respiratory PCR # bowel/bladder incontinence -CT of abdomen stable -condom luna catheter for comfort # neuropathic pain -patient complaining of burning/freezing pain in bilateral lower extremities -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 -tsh, b12 normal -gabapentin dose increased (600 mg tid)- maybe slightly helping # multiple compression fractures -patient is complaining of increased weakness but not of pain -f/u T/L spine CT shows old fx -no intervention at this time # abdominal pain -none during my evaluation # malnutrition: -patient reports up to 50 pound weight loss over several months -eating fine # copd/asthma: -duonebs -on 2 liters #nicotine dependence -patch (he says this really is helping) # FTT: -in the setting of above #Dispo: pending #plan: CM looking at facilities DC in am to SNF Subjective: Feeling tired today. No pain. Objective: Vital Signs Temp Pulse Resp BP Pulse Ox 36.4 C 103 H 16 126/87 H 94 12/05/18 13:47 12/05/18 13:47 12/05/18 13:47 12/05/18 13:47 12/05/18 13:48 Microbiology 12/04/18 11:45 Respiratory Panel (PCR) - Final Nasal, Sinus - [place] Viral Transport No Organism Detected By Pcr Laboratory Results 12/03/18 23:30 12/05/18 04:43 12/04/18 12/05/18 12/06/18 05:59 05:59 05:59 Intake Total 1200 300 240 Output Total 1525 1100 270 Balance -325 -800 -30 PT 13.4 SEC (12.0-15.0) 11/27/18 14:21 INR 1.00 (0.83-1.16) 11/27/18 14:21 - Physical Exam Constitutional: appears nourished, chronically ill appearing Eyes: PERRL, anicteric sclera Ears, Nose, Mouth, Throat: moist mucous membranes, hearing normal Cardiovascular: No JVD, No edema Respiratory: no respiratory distress, reduced air movement Gastrointestinal: No tenderness, No ascites Skin: warm, normal color Musculoskeletal: no joint effusions, generalized weakness Neurologic: AAOx3 Psychiatric: not anxious, not encephalopathic, poor insight, poor judgement ICD10 Worksheet Patient Problems: Problems Problem Status Onset Clinical decompensation Acute Incontinence Acute Weight loss Acute Numbness in feet Acute
--- NOTE | 2018-12-05 15:57 | ASMTCMCOM ---
CM Note CM Note Notes: CM spoke to Tova Martinez NP regarding d/c POC. Several new referrals sent to SNFs. A number of SNFs have already declined him. [id number] completed and approved for 30-60 days of rehab. CM to follow. Plan: Possibly SNF Date Signed: 12/05/2018 03:56 PM Electronically Signed By:PARRIS Lerner
[2018-12-06] MEDS: HYDROCODONE/APAP 5/325 TAB PO PRN ×3 (05:13→16:39)
[2018-12-06] MEDS: IPRATROPIUM/ALBUTEROL 3 ML DEYVIAL IH SCH ×3 (05:27→16:47)
[2018-12-06] MEDS: GABAPENTIN 300 MG CAP PO SCH ×2 (08:35→16:29)
[2018-12-06] MEDS: MULTIVITAMINS 1 EACH TAB PO SCH (08:36)
[2018-12-06] MEDS: ENOXAPARIN 40 MG/0.4 ML SYR SC SCH (08:37)
[2018-12-06] MEDS: NICOTINE 21 MG/24 HR PATCH TD SCH (08:37)
[2018-12-06] MEDS: THIAMINE HCL 100 MG TAB PO SCH (08:38)
[2018-12-06] MEDS: FOLIC ACID 1 MG TAB PO SCH (08:38)
[2018-12-06] MEDS: FAMOTIDINE 20 MG TAB PO SCH (08:38)
[2018-12-06] MEDS: SENNOSIDES/DOCUSATE SODIUM TAB PO SCH (08:39)
[2018-12-06] MEDS: LORazepam 2 MG/ML INJ IVP PRN ×2 (09:54→16:41)
--- NOTE | 2018-12-06 11:09 | PDIAF ---
- Diagnosis Diagnosis: FTT Code Status: Full Code - Medication Management Discharge Medications: electronically signed and located in the Home Medication List. PICC Care - Routine: N/A - Orders Services needed: Registered Nurse, Physical Therapy, Occupational Therapy Diet Recommendation: no restrictions on diet Diet Texture: Regular Texture Diet, Thin Liquids, Meds Whole w/Liquids - Follow Up Care Current Providers and Referrals: NONE *PRIMARY CARE P,. [Primary Care Provider] - As per Instructions
--- NOTE | 2018-12-06 15:20 | GDS ---
[f rep st] DISCHARGE SUMMARY DISCHARGE DIAGNOSES: 1. Generalized weakness with gait instability. 2. Severe alcohol abuse. 3. Electrolyte abnormality. 4. Bowel and bladder incontinence. 5. Neuropathic pain. 6. Multiple chronic compression fractures. 7. Malnutrition. 8. History of chronic obstructive pulmonary disease. 9. Nicotine dependency. 10. Failure to thrive. PHYSICAL EXAM: GENERAL: The patient is alert. VITAL SIGNS: Afebrile at 36.5, pulse is 106, respir atory rate 16, blood pressure is 108/78. He is saturating 93% on 3 L. I have seen and evaluated the patient on the day of discharge. HOSPITAL COURSE: The patient is a 63-year-old male who presented to the emergency room with complain ts of weakness. He was evaluated and diagnosed with: 1. Generalized weakness with gait instability. This is in the setting of severe chronic alcohol abu se. The patient had an MRI of his brain with nothing acute identified. His condition has significan tly improved. He will continue to need physical therapy in the outpatient setting. 2. Severe alcohol abuse. The patient has no further signs of withdrawal. He was placed on CIWA dur ing this hospitalization as well as high-dose thiamine. He states that he wants to discontinue any f urther alcohol consumption and is doing well with regard to this. 3. Electrolyte abnormalities. These have been replaced. 4. Bowel and bladder incontinence. CT of the abdomen is stable. No further intervention warranted. 5. Neuropathic pain. This is a chronic problem for the patient and is being treated with gabapentin . 6. Multiple chronic compression fractures. No intervention is warranted. 7. Malnutrition. The patient has been seen by Dietary. He is tolerating a regular diet. 8. History of COPD. Continue 2 L of supplemental oxygen. 9. Nicotine dependence. Will continue his patch. 10. Failure to thrive. The patient currently is unable to live independently in the outpatient sett ing. He will be discharged to rehabilitation for further strengthening and conditioning. DISPOSITION: Again, the patient will be discharged to correction for further rehabilitation and management. PENDING STUDIES: There are no pending studies. DISCHARGE MEDICATIONS: Please refer to EMR form. I have not discontinued the patient's previously p rescribed home medications. FOLLOWUP: Will be with his primary care physician. I spent greater than 35 minutes in the care, coordination, and management of the patient's dispositio n as well as discussion with the dependency case manager. /[id number]/MODL
[2018-12-06 15:29] VITALS: BP 106/73
--- NOTE | 2018-12-06 16:19 | ASMTDCNOTE ---
Case Management Discharge Discharge Order Complete? Answers: Yes Patient to Obtain Answers: Other Notes: [facility] Medications Transportation Arranged Answers: Other Notes: [facility] Van Transport will Pick (Date 12/06/2018 06:00 PM & Time) Faxed Final Orders Answers: Yes Notes: [facility] Agency/Facility Transfer Answers: Yes Notes: [facility] Report Printed & Faxed to Receiving Agency Family Notified Answers: Yes Notes: daughter, Angelina Discharge Comments Notes: Patient is discharging to [facility] for SNF rehab. (formerly [facility]) Patient's daughter was contacted and given the address, name of facility, admissions phone number and floor person, Jacquelin Yoder. Angelina plans to try and visit him tomorrow. Discharge summaries were Allscripted to [facility]. Transport was arranged by Jacquelin Yoder, Rope Cutter, at [phone]. production supervisor time is 6:00 PM and it will be the [place] van. Patient going wheelchair with 2L O2. Patient himself agreed to the placement early this morning. He has been somewhat confused this afternoon making statements about 34% alcohol in his liver and he can't go. He is easily redirected. No further needs. Date Signed: 12/06/2018 04:18 PM Electronically Signed By:Susan Luna LCSW
--- NOTE | 2018-12-06 16:22 | ASMTLACE ---
TAL Length of stay for Answers: 7-13 days current admission Acuity / Level of Answers: Yes Care: Did the patient have an inpatient admission? Comorbidities - select Answers: Opioid dependence all that apply / Chronic pain Other Notes: ETOH # of Emergency department Answers: 1-2 visits in the last 6 months Social determinants Answers: History of substance abuse (ETOH, street drugs, prescription drugs, etc.) Score: 17 Date Signed: 12/06/2018 04:21 PM Electronically Signed By:Susan Luna LCSW
== END 2018-12-06 18:08 | DRG 421 ==
LOC: F3E 17:19
PROVIDERS: ADMIT Internal Medicine; ATTEND Internal Medicine
PROC: HZ2ZZZZ Detoxification Services for Substance Abuse Treatment (ICD-10-PCS; principal; 2018-11-27)
DX: R62.7 Adult failure to thrive (principal); E46 Unspecified protein-calorie malnutrition; G62.1 Alcoholic polyneuropathy; R15.9 Full incontinence of feces; F10.20 Alcohol dependence, uncomplicated; R32 Unspecified urinary incontinence; K57.30 Diverticulosis of large intestine without perforation or abscess without bleeding; D35.00 Benign neoplasm of unspecified adrenal gland; F17.210 Nicotine dependence, cigarettes, uncomplicated; R26.9 Unspecified abnormalities of gait and mobility; J44.9 Chronic obstructive pulmonary disease, unspecified; E83.42 Hypomagnesemia; Z87.81 Personal history of (healed) traumatic fracture; Z23 Encounter for immunization
CPT/HCPCS: 82607-90; 84484-ER; 92507-GN; 92523-GN; 92526-GN; 92610-GN; 97116-GP; 97161-GP; 97166-GO; 97530-GO; 97530-GP; 97535-GO; G0008; G0009; J0610; J0696; J1650; J2060; J3411; J3475; Q9967

== ENCOUNTER 2019-01-06 23:43 | Emergency (ER) | payer MEDICAID ==
[2019-01-07] MEDS ORDERED: NS 1,000 ML IV ONE
--- NOTE | 2019-01-07 02:07 | EDPHY ---
H & P Stated Complaint: ams-ETOH Time Seen by Provider: 01/07/19 00:17 HPI/ROS: HPI The patient presents with alcohol intoxication, brought in by ambulance from his home. He says he has had several pt of vodka today and relapsed on alcohol about 2 weeks ago. He is complaining of pain throughout his lower extremities which he attributes to neuropathy. He takes gabapentin for this. He denies any nausea or vomiting. He denies any injuries and is able to walk. The patient was admitted to the hospital from November 27 to December 06 for generalized weakness related to underlying alcohol abuse, COPD. He was discharged to rehab and eventually return to his home.. REVIEW OF SYSTEMS 10 systems were reviewed and negative with the exception of the elements mentioned in the history of present illness. PMHx: COPD, peripheral neuropathy Soc Hx: Chronic alcohol abuse, lives independently PHYSICAL General Appearance: Alert, no distress, clearly intoxicated Eyes: Pupils equal and round no pallor or injection ENT, Mouth: Mucous membranes moist Respiratory: There are no retractions, lungs are clear to auscultation Cardiovascular: Regular rate and rhythm Gastrointestinal: Abdomen is soft and non-tender, no masses, bowel sounds normal Neurological: A&O, moves all extremities Skin: Warm and dry, no rashes Musculoskeletal: Neck is supple non tender Extremities: symmetrical, full range of motion Psychiatric: Patient is oriented X 3, there is no agitation Source: Patient, EMS Exam Limitations: Intoxication - Personal History Current Tetanus Diphtheria and Acellular Pertussis (TDAP): Yes - Medical/Surgical History Hx Asthma: Yes Hx Chronic Respiratory Disease: No Hx Diabetes: No Hx Cardiac Disease: No Hx Renal Disease: No Hx Cirrhosis: No Hx Alcoholism: Yes Hx HIV/AIDS: No Hx Splenectomy or Spleen Trauma: No Other PMH: med- asthma, alcoholic, neck fx, chronic leg pain (x2 mo). surgery- L shoulder - Social History Smoking Status: Current every day smoker Constitutional: Initial Vital Signs Temperature (C) 36.3 C 01/06/19 23:57 Heart Rate 84 01/06/19 23:57 Respiratory Rate 16 01/06/19 23:57 Blood Pressure 122/73 H 01/06/19 23:57 O2 Sat (%) 93 01/06/19 23:57 O2 Delivery Mode Room Air O2 (L/minute) 2 Allergies/Adverse Reactions: No Known Allergies Allergy (Unverified 01/06/19 23:57) Home Medications: Medication Instructions Recorded Acetaminophen [Tylenol 325mg (*)] 650 mg PO Q4HRS PRN tab 12/06/18 Folic Acid [Folic Acid 1 MG (*)] 1 mg PO DAILY tab 12/06/18 Gabapentin [Neurontin 300 MG (*)] 600 mg PO TID cap 12/06/18 Hydrocodone/APAP 5/325 [[place] 1 - 2 tab PO Q3HRS PRN tab 12/06/18 5/325 (*)] Ipratropium/Albuterol [Duoneb (*)] 3 ml IH QID deyvial 12/06/18 Multivitamins [Multivitamin (*)] 1 each PO DAILY tab 12/06/18 Nicotine [Nicoderm Cq 21 mg (*)] 21 mg TD DAILY patch 12/06/18 Polyethylene Glycol 3350 [Miralax 17 gm PO DAILY PRN pkt 12/06/18 17 gm (*)] Sennosides/Docusate Sodium 1 - 2 tab PO BID tab 12/06/18 [Senokot-S] Thiamine HCl [Vitamin B-1] 100 mg PO DAILY tab 12/06/18 Medical Decision Making Differential Diagnosis: 63-year-old male with chronic alcohol abuse, living at home presents brought in by ambulance for alcohol intoxication. Here he has an unremarkable physical exam. He is complaining of lower extremity pain which I suspect is due to his peripheral neuropathy. Plan to monitor him here, give IV fluids. Patient was observed for several hours in the emergency department. He slept for much of his time here. He eventually was clinically sober and able to walk with a steady gait. He will be discharged from the emergency department. Differential diagnoses considered include alcohol abuse, alcohol intoxication, polysubstance abuse, peripheral neuropathy - Data Points Medications Given: Discontinued Medications Gabapentin (Neurontin) 300 mg PO EDNOW ONE Stop: 01/07/19 05:46 Last Admin: 01/07/19 05:46 Dose: 300 mg Sodium Chloride (Ns) 1,000 mls @ 0 mls/hr IV ONCE ONE; Wide Open PRN Reason: Protocol Stop: 01/07/19 00:01 Last Admin: 01/07/19 00:01 Dose: 1,000 mls Departure - Departure Disposition: Home, Routine, Self-Care Clinical Impression: Alcoholic intoxication Qualifiers: Complication of substance-induced condition: with delirium Qualified Code(s): F10.921 - Alcohol use, unspecified with intoxication delirium Peripheral neuropathy Qualifiers: Peripheral neuropathy type: polyneuropathy, unspecified Qualified Code(s): G62.9 - Polyneuropathy, unspecified Condition: Good Instructions: At-Risk Alcohol Use (ED) Referrals: [facility],. [Clinic] - As per Instructions
[2019-01-07] MEDS ORDERED: GABAPENTIN 300 MG CAP ONE (05:43)
[2019-01-07] MEDS ORDERED: GABAPENTIN 300 MG CAP PO ONE (05:45)
[2019-01-07 07:33] VITALS: BP 125/81
== END 2019-01-07 07:32 | disposition home or self-care (01) ==
LOC: EDUNIT#
DX: F10.121 Alcohol abuse with intoxication delirium (principal); G62.9 Polyneuropathy, unspecified; E86.9 Volume depletion, unspecified; Z79.899 Other long term (current) drug therapy

== ENCOUNTER 2019-03-09 11:16 | Emergency (ER) | payer MEDICAID, OTHER ==
[2019-03-09] MEDS ORDERED: NS 1,000 ML IV ONE ×2 (12:10→12:56)
--- NOTE | 2019-03-09 12:15 | EDPHY ---
General - History Smoking Status: Current every day smoker Time Seen by Provider: 03/09/19 11:53 Narrative: CLINICAL IMPRESSION: Fall, facial injuries ASSESSMENT/PLAN: 63-year-old male with a history of alcohol abuse presents to the emergency department after an unwitnessed fall in a local grocery store today. Patient was apparently postictal on arrival but has been alert and appropriate during his time in the ED. His last drink was 4 days ago. He may have suffered an alcohol withdrawal seizure and does have a history of this. He had a small abrasion to the left lateral nasal bone but no CT evidence of maxillofacial fractures, skull fracture, acute intracranial hemorrhage, or acute C-spine fracture. He has significant degenerative changes to the C-spine. He has no focal upper extremity paresthesias or weakness. He is non tremulous and clinically has no signs to suggest delirium tremens, werneke encephalopathy, toxidrome or medication overdose, hyponatremia, hypoglycemia or other electrolyte abnormality. He received 2 L of IV fluid, was observed in able to road test with a steady gait. He is [facility] Librium prepack. Post concussive in 2nd impact syndromes discussed, avoidance of driving until cleared by primary care emphasized, follow up with primary care, warning signs return to ED discussed in discharge. DIFFERENTIAL DX: Differential includes but not limited to facial fractures, closed head injury with concussion, intracranial hemorrhage, cervical spine fracture, alcohol withdrawal seizure, metabolic disturbance, infection ED PROCEDURES: See lab and/or imaging results below ED COURSE 12:00 p.m.: Patient seen assessed by myself. Plan for CT head, maxillofacial bones, cervical spine, lab and fluid bolus 1:25 p.m.: CT scan results discussed with Dr Dawn. Patient has no evidence of intracranial bleeding, chronic atrophy noted, old nasal bone deformity and left zygomatic arch deformity, no evidence of skull fracture, old C6 compression fracture and T3 compression fracture, severe degenerative disc disease and facet disease of the neck, no acute findings. CHIEF COMPLAINT: Fall, facial injuries HPI: 63-year-old male with past medical history of alcohol abuse, hypertension, chronic peripheral neuropathy, asthma, and prior orthopedic injuries presents to the emergency department after an unwitnessed fall at [facility] [employer] [facility] grocery store. Patient apparently fell on his face, was reportedly very confused after the fall and does not remember the fall itself. Patient tells me he remembers picking up some meat and a salad and then woke up on the floor. He admits that he did not sleep at all last night due to his chronic leg pain. He has had constant problem sleeping at night. He reports he has not had any alcoholic drinks for 4 days and prior to that was drinking at least a pt of vodka a day. He cannot tell me why he has not had a drink for 4 days but tells me he is not interested in stopping alcohol. He reports he has had 1 seizure in the past due to withdrawal. He is unclear if he sees today and there was no EMS report of seizure activity. He has no complaints of headache, vertigo, dizziness, acute vision or hearing changes, neck or back pain. He is not anticoagulated. He does not know if he got a bloody nose but does have an obvious laceration to the bridge of the nose. No dental injury. Patient is most bothered by his chronic lower leg pain PAST MEDICAL HISTORY: Alcoholism, hypertension, chronic peripheral neuropathy, asthma, prior neck fracture See nurse/triage notes for additional history if applicable Pertinent Past Surgical History: Orthopedic Family History: Noncontributory Social History: Lives alone, familiar to case management, seen by Hollie in the ED today REVIEW OF SYSTEMS: All other systems negative Constitutional: No fever, no chills, appetite change. Eyes: No discharge, vision change ENT: No sore throat, congestion, ear pain. Cardiovascular: No chest pain, no palpitations. Respiratory: No cough, no shortness of breath. Gastrointestinal: No abdominal pain, no vomiting, diarrhea. Genitourinary: No hematuria, dysuria, flank pain, pelvic pain Musculoskeletal: Chronic back pain, joint swelling, joint pain, myalgias. Chronic lower extremity pain Skin: No rashes, color change. Positive for wound to left nasal bridge Neurological: No headache, dizziness, weakness. PHYSICAL EXAM: General Appearance: Alert, oriented, appropriate, foul-smelling, smells heavily of smoke, cooperative, NAD, well hydrated, non-toxic appearing, hypertensive no hypoxia. HEENT: TMs are clear on left, cerumen impaction on right, no perforation or FB, no injection, no evidence of serous or mucopurulent otitis. No obvious hemotympanum or Miller sign Oropharynx clear is no erythema or exudates, no tonsillar hypertrophy or asymmetry. No midface instability Eyes: PERRLA, no acute vision change, nystagmus, swelling, discharge, pain or photosensitivity. Conjunctiva pink, no pallor or injection Neck: Supple, nontender, no lymphadenopathy, no midline pain, FROM, no meningismus. Respiratory: There are no retractions, lungs are clear to auscultation. No chest wall or rib pain to palpation Cardiac: Regular rate and rhythm, no murmurs or gallops. Gastrointestinal: [Abdomen is soft, nontender Neurological: [ Alert and oriented x 3 Skin: Warm, dry, no rashes, no nodules on palpation. Laceration to bridge of nose, left side Musculoskeletal: Extremities are symmetrical, full range of motion, chronic tenderness to bilateral lower extremities which patient reports is unchanged deformity, swelling, or erythema. Psychiatric: Patient is oriented X 3, there is no agitation. MEDICAL DECISION MAKING: Patient was seen independently. Secondary supervising physician at time of evaluation was Dr. Alvarez. Diagnosis: Fall, facial injuries . New, requires workup Summary: See Assessment and Plan for summary of ED visit Clinical lab tests: ordered / reviewed. Independent visualization of images, tracing, or specimens: Yes. Discussed patient with another provider: Radiology Patient Progress: Stable for discharge. (Tavo Flores) Medical Decision Making: I did not see this patient while he was in the emergency department. However his care was discussed with the PA while the patient was in the department. I agree with treatment plan and management (Thomas Alvarez) - Objective Vital Signs: Initial Vital Signs Temperature (C) 36.6 C 03/09/19 11:22 Heart Rate 100 03/09/19 11:22 Respiratory Rate 20 03/09/19 11:22 Blood Pressure 157/104 H 03/09/19 11:22 O2 Sat (%) 94 03/09/19 11:22 O2 Delivery Mode Room Air Allergies/Adverse Reactions: No Known Allergies Allergy (Verified 03/09/19 11:26) Home Medications: Medication Instructions Recorded Tylenol PM (*) 03/09/19 Laboratory Results: Laboratory Results 03/09/19 11:25 03/09/19 11:25 Medications Given: Discontinued Medications Chlordiazepoxide (Librium 25 Mg Prepack#6) 1 btl TAKEHOME EDNOW ONE Stop: 03/09/19 14:25 Last Admin: 03/09/19 14:44 Dose: 1 btl Chlordiazepoxide (Librium 25 Mg Prepack#6) 1 btl TAKEHOME EDNOW ONE Stop: 03/09/19 14:42 Last Admin: 03/09/19 14:46 Dose: Not Given Sodium Chloride (Ns) 1,000 mls @ 0 mls/hr IV EDNOW ONE; Wide Open PRN Reason: Protocol Stop: 03/09/19 12:11 Last Admin: 03/09/19 13:00 Dose: 1,000 mls Sodium Chloride (Ns) 1,000 mls @ 0 mls/hr IV EDNOW ONE; Wide Open PRN Reason: Protocol Stop: 03/09/19 12:57 Last Admin: 03/09/19 13:01 Dose: 1,000 mls Ibuprofen (Motrin) 600 mg PO EDNOW ONE Stop: 03/09/19 14:37 Last Admin: 03/09/19 14:43 Dose: 600 mg Tetracaine/Epinephrine/Lidocaine (Let Gel Topical) 1 ea TP EDNOW ONE Stop: 03/09/19 13:44 Last Admin: 03/09/19 13:48 Dose: 1 ea Departure - Departure Disposition: Home, Routine, Self-Care Clinical Impression: Abrasion, Contusion of face Condition: Fair Instructions: Chlordiazepoxide/Clidinium (By mouth), Head Injury (ED) Additional Instructions: DISCHARGE INSTRUCTIONS FROM YOUR DOCTOR Thank you for visiting our emergency department today. You were treated by a physician recreational assistant today and your case was reviewed with our ED Attending physician. Please keep in mind that discharge from the emergency department does not mean that there is nothing wrong - it simply means that we have not identified an emergency condition that requires further evaluation or treatment in the hospital. You should always plan to follow up with primary care for re- evaluation of your condition in the next 2-3 days. If you have been referred to a specialist, please call as soon as possible (today or tomorrow) to schedule your follow up appointment at the appropriate time. CT SCAN OF YOUR FACE, HEAD, AND CERVICAL SPINE SHOWED NO EVIDENCE OF BLEEDING IN THE BRAIN, SCALP FRACTURE, FACIAL FRACTURES, OR ACUTE CERVICAL SPINE FRACTURES. YOU HAVE DEGENERATIVE CHANGES TO THE NECK. A LIBRIUM PREPACK WAS GIVEN AND YOU ARE BEING [facility]GED TO [facility]. YOUR SYMPTOMS COULD HAVE BEEN SECONDARY TO AN ALCOHOL WITHDRAWAL SEIZURE. THE [facility] CAN HELP WITH YOUR WITHDRAWAL SYMPTOMS. RETURN TO THE EMERGENCY DEPARTMENT FOR SEVERE HEADACHE, ALTERED MENTAL STATUS, SEIZURES, HIGH FEVERS, CHEST PAIN, SHORTNESS OF BREATH OR ANY OTHER CONCERN. People present with illnesses and injuries in different ways, and it is always possible that we have missed something. You may always return for re-evaluation if symptoms worsen or if they are not improving or if you develop new/different symptoms. Again, thank you for choosing our emergency department. We hope that you feel better. Referrals: Patient,NotPresent [Unknown] - As per Instructions [facility],. [Clinic] - 2-3 days without fail
[2019-03-09 12:22] LABS: PLATELET COUNT 77 10^3/uL (150-400)
[2019-03-09] MEDS ORDERED: LET GEL TOPICAL 1 EA SYR TP ONE (13:43)
[2019-03-09] MEDS ORDERED: CHLORDIAZEPOXIDE 25MG PREPK#6 BTL TAKEHOME ONE ×2 (14:24→14:41)
[2019-03-09] MEDS ORDERED: IBUPROFEN 600 MG TAB PO ONE (14:36)
[2019-03-09 14:53] VITALS: BP 135/70
--- NOTE | 2019-03-09 15:07 | ASMTCMCOM ---
CM Note CM Note Notes: Patient presents to ER via EMS after a witnessed fall, seizure (?) at the [employer] in [place]. See ER report for more details. Patient is awake and oriented X 4 when I met with him. He tells me that he has been having difficulty sleeping at home and has been taking "alot of Tylenol PM" and admits to drinking a pint of Vodka per day. Patient states that he does not remember falling but thinks he last drank "about 4 days ago, so he may have had a seizure". Patient acknowledges that he has a case operator at the [facility] and that it is okay for CM to contact him directly. Chart reviewed. This CM contacted Tobias Hobbs, hospice care transitions coordinator at the [facility] and confirmed that patient is part of their permanent housing program. Patient is well known to Tobias, however patient's hospice care transitions coordinator at the [facility] is Dominguez Saldivar. This CM discussed plan for patient to discharge to the [facility] this afternoon and Tobias confirms that he will be in contact with patient's PCP-Dr. Angelina Lange at [facility]-as well as patient's daughter Angelina who is involved in patient's life and care. Patient discharged to the [facility] at 1500 and CM LM with Tobias to let him know. CM available for further needs prn Date Signed: 03/09/2019 03:05 PM Electronically Signed By:Hollie Aguilar RN
== END 2019-03-09 14:53 | disposition home or self-care (01) ==
LOC: EDUNIT#
DX: S00.31XA Abrasion of nose, initial encounter (principal); E86.9 Volume depletion, unspecified; F10.10 Alcohol abuse, uncomplicated; I10 Essential (primary) hypertension; W19.XXXA Unspecified fall, initial encounter; Y92.512 Supermarket, store or market as the place of occurrence of the external cause
CPT/HCPCS: G0480